=== PATIENT | male | born 1975 | race Caucasian/White ===

== ENCOUNTER 2020-02-19 10:02 | Emergency (ER) | payer SELFPAY ==
--- NOTE | 2020-02-19 10:15 | W.ED.EYEPROB ---
HPI - Eye Problem General: Chief complaint: Eye Problems Stated complaint: FB R EYE Time Seen by Provider: 02/19/20 10:09 History of Present Illness: HPI Narrative: 45-year-old male patient presents to the emergency department with right eye complaint. 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 He reports photosensitivity to the right eye, denies change of vision, pain worse with blinking, has used [id number] product such as Visine and saline to help irrigate the eye. Associated symptoms: Denies fever(s), headache(s), nausea or vomiting Review of Systems General: Reports: 10 or more systems reviewed and unremarkable except in HPI and below Const: Denies: fever(s), chills or diaphoresis Eyes: Reports: blurry vision (Right), photophobia (Right), eye discharge (Watering, right) and eye redness (Right) ENMT: Denies: throat pain, dental pain or disequilibrium Card: Denies: chest pain, palpitations or irregular heart rhythm Resp: Denies: dyspnea, productive cough, non-productive cough or wheezing GI: Denies: abdominal pain, nausea or vomiting : Denies: dysuria Musc: Denies: back pain Skin/Breast: Denies: rash or pruritus Neuro: Denies: headache(s), weakness in extremities or behavioral changes Ever/Lymph: Denies: easy bruising Physical Exam Const: COMMON NORMALS: no acute distress, patient oriented x3, healthy appearing and alert GENERAL APPEARANCE: cooperative, comfortable and well hydrated HENMT: COMMON NORMALS: normocephalic, Normal external nose present and moist oral mucous membranes HEAD & SCALP: normocephalic NOSE: Normal external nose present Eye: COMMON NORMALS: Equal, round and reactive pupils present and EOMs intact bilaterally GENERAL EYE: appearance normal, both eyes and all related structures VISUAL AMADOR: No peripheral vision loss ALIGNMENT: Yes alignment normal PERIORBITAL: periorbital findings normal EYELID: eyelids normal CONJUNCTIVA: Yes conjunctival abnormal positive right conjunctival injection SCLERA: scleral abnormal Laterality of scleral abnormality: positive right scleral injection PUPIL: Yes Equal, round and reactive pupils present, Yes pupil size - right Right pupil size (mm): 4 and Yes pupil size - left Left pupil size (mm): 4 OTHER: Fluorescein eye exam completed with tetracaine for pain, foreign body at 4:00, adjacent to pupil, Neck/C-Spine: COMMON NORMALS: full ROM and no lymphadenopathy GENERAL: Yes normal visual inspection and Yes trachea midline CERVICAL SPINE: Yes cervical ROM normal Lymph: LYMPHATIC: no lymphadenopathy noted Chest: COMMONS NORMALS: normal inspection of the chest Resp: COMMON NORMALS: normal respiratory effort and clear to auscultation bilaterally AUSCULTATION: clear to auscultation bilaterally Cardio: COMMON NORMALS: regular rhythm, S1 normal heart sound present and S2 normal heart sound present RHYTHM: regular rhythm HEART SOUNDS: S1 normal heart sound present and S2 normal heart sound present GI: COMMON NORMALS: Soft to palpation and non-tender INSPECTION: Yes normal to inspection PALPATION: Yes Soft to palpation : COMMON NORMALS: Yes no CVA tenderness BLADDER/KIDNEY EXAM: Yes no CVA tenderness Back/Pelvis: COMMON NORMALS: no CVA tenderness and thoracic and lumbar spine normal to inspection Extremity: COMMON NORMALS: normal to inspection and capillary refill normal Neuro: COMMON NORMALS: patient oriented x3 and no focal motor deficits SENSORIUM/ORIENTATION: Yes alert Psych: COMMON NORMALS: mental status grossly normal, Normal thought process present and cooperative ACTIVITY/MOTOR BEHAVIOR: Yes appropriate eye contact THOUGHT PROCESS: Normal thought process present Skin: COMMON NORMALS: no rashes or lesions noted and turgor normal GENERAL SKIN EXAM: no rashes or lesions noted and turgor normal Procedures FB Removal Eye Time Out performed: Yes Location: eye (R) Topical anesthetic used: tetracaine Foreign body: metal Evidence of corneal penetration: Yes Technique: irrigation, cotton tip swab and electric yris Procedure performed under: direct visualization with magnification Post-procedure medication: other (saline irrigation) Patient tolerated procedure: well and no complications Complications: incomplete foreign body removal and residual rust ring Course ED course: Dr. Hernandez completed foreign body removal procedure, patient tolerated well without complication Vital Signs: Vital signs: Vital Signs Temperature 98.4 F 02/19/20 10:17 Pulse Rate 70 02/19/20 11:29 Respiratory Rate 15 02/19/20 11:29 Blood Pressure 125/70 02/19/20 11:29 Pulse Oximetry 95 02/19/20 11:29 Discharge Plan Discharge Patient Disposition: Home Clinical Impression: Bacterial conjunctivitis, Foreign body Corneal abrasion Qualifiers: Encounter type: initial encounter Laterality: right Qualified Code(s): S05.01XA - Injury of conjunctiva and corneal abrasion without foreign body, right eye, initial encounter Condition: Stable Prescriptions: New polymyxin B sulf-trimethoprim 10,000 unit- 1 mg/mL drops 1 drop ophthalmic (eye) QID 7 Days Qty: 10 RF: 0 No Action ibuprofen 200 mg Tablet 200 - 400 mg PO DAILY RF: 0 Multiple Vitamins 1 tab PO DAILY RF: 0 Discharge Orders: Discharge Order (Routine); Ordered 02/19/20 Ordered By: Fernanda Hernandez Referrals: Bayron Ferro MD [Physician] - 1-3 days Discharge Diet: Usual diet Discharge Activity: Resume usual activity Patient Instructions: Corneal Abrasion (ED), Eye Foreign Body (ED) Activity Restrictions/Additional Instructions: Use eyedrops as directed, do not miss a dose. Case management will be contacting you tomorrow for follow-up appointment with Dr. Ferro, ophthalmology You may use eyewash irrigation to keep the eye hydrated/irrigated as needed for dryness Do not wear a patch Do not rub the eye May take Tylenol or ibuprofen as needed for pain as directed on back of bottle Cool compresses may help with pain If you develop inability to see out of the right eye, you must return to the emergency department immediately Discharge Date/Time: 02/19/20 11:29 Coding Level of Care Code ED Industrial Safety And Health Specialist for Merissa Moore Exam Comprehensive
[2020-02-19 10:17] VITALS: BP 138/91; PULSE 71; RESP 17; TEMP 36.9; O2SAT 96; BMI 25.0
[2020-02-19 11:29] VITALS: BP 125/70; PULSE 70; RESP 15; O2SAT 95
--- NOTE | 2020-02-21 12:05 | DCPLANNER ---
booth manager had message to schedule a follow up appointment for patient with Dr. Ferro. booth manager called the office of Dr. Ferro, spoke with Yari, gave clinic patients information. A follow up appointment is scheduled for , February 23, 2020 at 4:[address] Ferro, patient is aware of appointment.
--- NOTE | 2020-03-30 14:16 | DCPLANNER ---
Patient had a follow up appointment scheduled for 02.23.[address] Ferro - patient did attend appointment.
== END 2020-02-19 11:29 | disposition home or self-care (01) ==
PROVIDERS: Emergency Provider Nurse Practitioner Family
DX: H10.89 Other conjunctivitis (principal); S05.01XA Injury of conjunctiva and corneal abrasion without foreign body, right eye, initial encounter; T15.91XA Foreign body on external eye, part unspecified, right eye, initial encounter; X58.XXXA Exposure to other specified factors, initial encounter
CPT/HCPCS: 12345; 65205; 99282; 99283

== ENCOUNTER 2020-12-01 10:47 | Emergency (ER) | payer SELFPAY ==
[2020-12-01 10:52] VITALS: BP 136/102; PULSE 80; RESP 24; TEMP 36.8; O2SAT 97; BMI 25.0
--- NOTE | 2020-12-01 11:09 | XRR_ITS ---
PROCEDURE INFORMATION: Exam: XR Chest Exam date and time: 12/01/2020 11:16 AM Age: 45 years old Clinical indication: Shortness of breath; Sternal or substernal pain; Additional info: SOB TECHNIQUE: Imaging protocol: XR of the chest. Views: 1 view. COMPARISON: CT chest w con* [id number] 01/25/2014 6:45 PM FINDINGS: Lungs: Unremarkable. No consolidation. Pleural spaces: Unremarkable. No pleural effusion. No pneumothorax. Heart/Mediastinum: Unremarkable. No cardiomegaly. Bones/joints: Unremarkable. XR/XR chest 1V portable [id number] IMPRESSION: No acute findings.
--- NOTE | 2020-12-01 11:11 | ED_ITS ---
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 Patient states he is short of breath if he ambulates and states he just cannot seem to get a deep breath. Patient also states lack of energy. Patient denies any recent pain in the local pain mood. Patient states just fatigue and tightness in the chest is getting worse. Will do medical evaluation treat as needed Onset (ago): week(s) (1 week) Pain Consistency: constant Relieving factors: none Associated symptoms: Reports dyspnea; Deny chest pain, headache(s), nausea, rash, palpitations or vomiting Review of Systems General: Reports: 10 or more systems reviewed and unremarkable except in HPI and below Const: Reports: fatigue; Denies: fever(s), chills or body aches Eyes: Denies: change in vision or blurry vision ENMT: Denies: throat pain, hoarseness or mouth pain Card: Denies: chest pain, palpitations, irregular heart rhythm, edema, swelling of feet/ankles or lightheadedness Resp: Reports: dyspnea; Denies: productive cough, non-productive cough, wheezing or pain on inspiration GI: Denies: abdominal pain, nausea or vomiting : Denies: flank pain, dysuria, urinary frequency, urinary urgency or urinary hesitancy Musc: Reports: back pain; Denies: neck pain, extremity pain, extremity swelling, joint pain, joint swelling, joint redness, joint warmth or limited range of motion Skin/Breast: Denies: rash, pruritus, erythema or skin tenderness Neuro: Denies: headache(s), numbness in extremities or weakness in extremities Psych: Denies: anxiety or depression PFSH ED PFSH: Family History Brother Diabetes Stroke Grandmother Stroke Mother Cancer Social History Smoking and tobacco status: current some day smoker Alcohol intake: current Alcohol intake frequency: few times a month Physical Exam Const: COMMON NORMALS: no acute distress, average body habitus, patient oriented x3, no limitations, healthy appearing, alert and well nourished HENMT: COMMON NORMALS: normocephalic, atraumatic, hearing grossly normal bilaterally, external ears normal, EAC's normal, TM's normal bilaterally, Normal external nose present, Normal nasal mucous membranes and turbinates present, moist oral mucous membranes, oropharynx normal, dentition normal and gingiva normal HEAD & SCALP: normocephalic and atraumatic NOSE: Normal external nose present and Normal nasal mucous membranes and turbinates present EXTERNAL EAR: Yes external ears normal EXTERNAL AUDITORY CANAL: EAC's normal TYMPANIC MEMBRANE: TM's normal bilaterally Neck/C-Spine: COMMON NORMALS: full ROM, no lymphadenopathy, supple, no meningeal signs, no JVD, Thyroid normal and No carotid bruits THYROID: Thyroid normal Chest: COMMONS NORMALS: normal inspection of the chest, normal palpation of entire chest wall, normal inspection of the breasts and normal palpation of the breasts Breast/axilla inspection: Yes normal inspection of the breasts BREAST/AXILLA PALPATION: Yes normal palpation of the breasts Resp: COMMON NORMALS: normal respiratory effort, No retractions, No use of accessory muscles, clear to auscultation bilaterally and percussion normal AUSCULTATION: clear to auscultation bilaterally PERCUSSION: percussion normal Cardio: COMMON NORMALS: no JVD, regular rate, regular rhythm, S1 normal heart sound present, S2 normal heart sound present, No gallops present (Cardio), No clicks present (Cardio), No murmurs present (Cardio), No rub (Cardio) and Peripheral pulses 2+ throughout RATE: regular rate RHYTHM: regular rhythm HEART SOUNDS: S1 normal heart sound present and S2 normal heart sound present PERIPHERAL PULSES: Peripheral pulses 2+ throughout GI: COMMON NORMALS: Normal to inspection, nondistended, normoactive bowel sounds present, Soft to palpation, non-tender, No hepatosplenomegaly present, no masses and no bruits PALPATION: Yes Soft to palpation and Yes No hepatosplenomegaly present : COMMON NORMALS: Yes no CVA tenderness BLADDER/KIDNEY EXAM: Yes no CVA tenderness Back/Pelvis: COMMON NORMALS: no CVA tenderness, thoracic and lumbar spine normal to inspection, no thoracic nor lumbar tenderness, thoraco-lumbar ROM normal and straight leg raise negative bilaterally Extremity: COMMON NORMALS: normal to inspection, full ROM, capillary refill normal, no joint enlargement, no clubbing, cyanosis or edema, no calf tenderness and no pedal edema Neuro: COMMON NORMALS: patient oriented x3 SENSORIUM/ORIENTATION: Yes alert MENINGEAL SIGNS: Yes no meningeal signs Course Reevaluation(s): Reevaluation #1: 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 Patient states he is short of breath if he ambulates and states he just cannot seem to get a deep breath. Patient also states lack of energy. Patient denies any recent pain in the local pain mood. Patient states just fatigue and tightness in the chest is getting worse. Negative evaluation in the emergency department for any acute findings. Patient does complain of low back strain. Patient will be following up with his PCP. 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 Patient be prescribed diclofenac as needed for back pain. 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 Patient states he is short of breath if he ambulates and states he just cannot seem to get a deep breath. Patient also states lack of energy. Patient denies any recent pain in the local pain mood. Patient states just fatigue and tightness in the chest is getting worse. Negative evaluation in the emergency department for any acute findings. Patient does complain of low back strain. Patient will be following up with his PCP. 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 Patient be prescribed diclofenac as needed for back pain. Patient states understanding he will be discharged home Medical Records: Attestation: I reviewed the patient's medical records. Lab Data: Attestation: I reviewed the patient's lab results. Labs: Lab Results 12/01/20 12/01/20 12/01/20 Range/Units 11:18 11:18 11:18 WBC 3.4 L (4.0-10.0) 10^3/ uL RBC 5.35 H (4.1-5.3) 10^6/u L Hgb 16.4 (11.7-16.6) g/dL Hct 48.2 (42.0-52.0) % MCV 90.1 (80-94) fL MCH 30.7 (28.0-34.0) pg MCHC 34.0 (30.0-36.0) g/dL RDW 12.7 (12.1-15.1) % Plt Count 185 (130-400) 10^3/c mm MPV 10.6 H (7.4-10.4) fL Neut % (Auto) 56.8 % Lymph % (Auto) 31.4 % Meagher % (Auto) 10.6 % Eos % (Auto) 0.0 % Baso % (Auto) 0.9 % Neut # (Auto) 1.94 (1.8-7.7) 10^3/u L Lymph # (Auto) 1.1 (0.8-4.8) 10^3/u L Meagher # (Auto) 0.4 (0.2-0.9) 10^3/u L Eos # (Auto) 0.0 (0.0-0.8) 10^3/u L Baso # (Auto) 0.0 (0.0-0.1) 10^3/u L Nucleated RBC % (a uto) 0 % Nucleated RBCs # 0.0 /100WBC PT Cancelled INR Cancelled APTT Cancelled D-Dimer Cancelled Sodium Cancelled Potassium Cancelled Chloride Cancelled Carbon Dioxide Cancelled Anion Gap Cancelled BUN Cancelled Creatinine Cancelled GFR Calculation Cancelled Glucose Cancelled Calculated Osmolal ity Cancelled Calcium Cancelled Magnesium Cancelled Total Bilirubin Cancelled AST Cancelled ALT Cancelled Alkaline Phosphata se Cancelled Troponin T Baselin e C-Reactive Protein Cancelled NT-Pro-B Natriuret Pep Cancelled Total Protein Cancelled Albumin Cancelled Globulin Cancelled Urine Opiates Scre en (Negative) ng/mL Ur Barbiturates Sc reen (Negative) ng/mL Ur Phencyclidine S crn (Negative) ng/mL Ur Amphetamines Sc reen (Negative) ng/mL U Benzodiazepines Scrn (Negative) ng/mL Urine Cocaine Scre en (Negative) ng/mL U Marijuana (THC) Screen (Negative) ng/mL 12/01/20 12/01/20 12/01/20 Range/Units 11:18 12:15 12:15 WBC (4.0-10.0) 10^3/ uL RBC (4.1-5.3) 10^6/u L Hgb (11.7-16.6) g/dL Hct (42.0-52.0) % MCV (80-94) fL MCH (28.0-34.0) pg MCHC (30.0-36.0) g/dL RDW (12.1-15.1) % Plt Count (130-400) 10^3/c mm MPV (7.4-10.4) fL Neut % (Auto) % Lymph % (Auto) % Meagher % (Auto) % Eos % (Auto) % Baso % (Auto) % Neut # (Auto) (1.8-7.7) 10^3/u L Lymph # (Auto) (0.8-4.8) 10^3/u L Meagher # (Auto) (0.2-0.9) 10^3/u L Eos # (Auto) (0.0-0.8) 10^3/u L Baso # (Auto) (0.0-0.1) 10^3/u L Nucleated RBC % (a uto) % Nucleated RBCs # /100WBC PT 13.50 INR 1.00 APTT 27.7 D-Dimer 0.35 Sodium 132 L Potassium 4.3 Chloride 95 L Carbon Dioxide 25 Anion Gap 16.3 BUN 11 Creatinine 0.9 GFR Calculation 92.1 Glucose 88 Calculated Osmolal ity 273 L Calcium 9.2 Magnesium 2.4 H Total Bilirubin 0.6 AST 25 ALT 19 Alkaline Phosphata se 90 Troponin T Baselin e Cancelled C-Reactive Protein 7.9 H NT-Pro-B Natriuret Pep 45 Total Protein 7.7 Albumin 4.5 Globulin 3.2 Urine Opiates Scre en (Negative) ng/mL Ur Barbiturates Sc reen (Negative) ng/mL Ur Phencyclidine S crn (Negative) ng/mL Ur Amphetamines Sc reen (Negative) ng/mL U Benzodiazepines Scrn (Negative) ng/mL Urine Cocaine Scre en (Negative) ng/mL U Marijuana (THC) Screen (Negative) ng/mL 12/01/20 12/01/20 Range/Units 12:15 12:45 WBC (4.0-10.0) 10^3/ uL RBC (4.1-5.3) 10^6/u L Hgb (11.7-16.6) g/dL Hct (42.0-52.0) % MCV (80-94) fL MCH (28.0-34.0) pg MCHC (30.0-36.0) g/dL RDW (12.1-15.1) % Plt Count (130-400) 10^3/c mm MPV (7.4-10.4) fL Neut % (Auto) % Lymph % (Auto) % Meagher % (Auto) % Eos % (Auto) % Baso % (Auto) % Neut # (Auto) (1.8-7.7) 10^3/u L Lymph # (Auto) (0.8-4.8) 10^3/u L Meagher # (Auto) (0.2-0.9) 10^3/u L Eos # (Auto) (0.0-0.8) 10^3/u L Baso # (Auto) (0.0-0.1) 10^3/u L Nucleated RBC % (a uto) % Nucleated RBCs # /100WBC PT INR APTT D-Dimer Sodium Potassium Chloride Carbon Dioxide Anion Gap BUN Creatinine GFR Calculation Glucose Calculated Osmolal ity Calcium Magnesium Total Bilirubin AST ALT Alkaline Phosphata se Troponin T Baselin e 6 C-Reactive Protein NT-Pro-B Natriuret Pep Total Protein Albumin Globulin Urine Opiates Scre en Negative (Negative) ng/mL Ur Barbiturates Sc reen Negative (Negative) ng/mL Ur Phencyclidine S crn Negative (Negative) ng/mL Ur Amphetamines Sc reen Negative (Negative) ng/mL U Benzodiazepines Scrn Positive H (Negative) ng/mL Urine Cocaine Scre en Negative (Negative) ng/mL U Marijuana (THC) Screen Negative (Negative) ng/mL Imaging Data^: CXR: Attestation: I personally reviewed and interpreted this imaging study as follows: Radiologist's impression: IMPRESSION: No acute findings. EKG Data^: EKG 1: Attestation: I personally reviewed and interpreted this EKG as follows: EKG interpretation date: 12/01/20 EKG interpretation time: 11:00 Interpretation: Normal sinus rhythm heart rate 71 Computer generated interpretation: Chest X-Ray 12/01/20 11:09 IMPRESSION: No acute findings. Discharge Plan Discharge Patient Disposition: Home Clinical Impression: Dyspnea, Low back strain Condition: Stable Prescriptions: New diclofenac sodium 75 mg tablet,delayed release (DR/EC) 75 mg PO BID PRN (Reason: pain) Qty: 20 RF: 0 No Action ibuprofen 200 mg Tablet 200 - 400 mg PO DAILY RF: 0 Discharge Orders: Discharge ED (Routine); Ordered 12/01/20 Ordered By: Jerry Allen Referrals: Regla Walsh NP [Primary Care Provider] - Discharge Diet: Advance as tolerated Discharge Activity: Increase activity as tolerated Patient Instructions: Opioid Safety Activity Restrictions/Additional Instructions: Encourage p.o. fluids. Stretching exercises as needed. Take medication as needed for low back pain. Follow-up with PCP in 2 to 3 days as needed. Coding Level of Care Code ED Digital Photographer for Merissa Fwd Exam Comprehensive
--- NOTE | 2020-12-01 11:11 | ECG_ITS ---
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
[2020-12-01 11:54] LABS: Basophils % 0.9 %; Hematocrit 48.2 % (42.0-52.0); Hemoglobin 16.4 g/dL (11.7-16.6); Lymphocytes # 1.1 10^3/uL (0.8-4.8); Lymphocytes % 31.4 %; Mean Corpuscular Hemoglobin 30.7 pg (28.0-34.0); Mean Corpuscular Volume 90.1 fL (80-94); Mean Platelet Volume 10.6 fL (7.4-10.4); Monocytes # 0.4 10^3/uL (0.2-0.9); Monocytes % 10.6 %; Neutrophils # 1.94 10^3/uL (1.8-7.7); Neutrophils % 56.8 %; Nucleated Red Blood Cells % 0 %; Platelet Count 185 10^3/cmm (130-400); Red Blood Count 5.35 10^6/uL (4.1-5.3); Red Cell Distribution Width 12.7 % (12.1-15.1); White Blood Count 3.4 10^3/uL (4.0-10.0)
[2020-12-01 12:50] LABS: Partial Thromboplastin Time 27.7 SECONDS (23.9-36.7)
[2020-12-01 12:52] LABS: D Dimer 0.35 ug/mIFEU (0-0.59)
[2020-12-01 12:58] LABS: Troponin(5th) Baseline 6 ng/L (0-15)
[2020-12-01 13:08] LABS: Alanine Aminotransferase 19 U/L (0-41); Albumin Level 4.5 g/dL (3.5-5.2); Alkaline Phosphatase 90 IU/L (40-130); Aspartate Amino Transferase 25 U/L (0-40); Blood Urea Nitrogen 11 mg/dL (6-20); C Reactive Protein 7.9 mg/L (0.0-4.9); Calcium 9.2 mg/dL (8.5-10.5); Carbon Dioxide 25 mmol/L (22-29); Chloride 95 mmol/L (98-107); Globulin 3.2 g/dL (1.3-4.6); Glomerular Filtration Rate 92.1 mL/min (90-130); Glucose 88 mg/dL (65-115); Magnesium 2.4 mg/dL (1.7-2.3); NT Pro B Type Natriuretic Pept 45 pg/mL (0-125); Osmolality Calculated 273 mOsm/kg (285-295); Sodium 132 mmol/L (136-145); Total Bilirubin 0.6 mg/dL (0.15-1.2); Total Protein 7.7 g/dL (6.6-8.7)
--- NOTE | 2020-12-01 13:11 | ECG_ITS ---
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
[2020-12-01 13:16] LABS: Amphetamines Screen Urine Negative (Negative); Barbiturates Screen Urine Negative (Negative); Benzodiazepines Screen Urine Positive (Negative); Cocaine Screen Urine Negative (Negative); Opiate Screen Urine Negative (Negative); PCP Screen Urine Negative (Negative); THC Screen Urine Negative (Negative)
[2020-12-01 13:33] LABS: Anion Gap 16.3 (5-19); Potassium 4.3 mmol/L (3.5-5.1)
[2020-12-01 14:34] VITALS: BP 110/62; PULSE 85; RESP 18; O2SAT 96
== END 2020-12-01 14:38 | disposition home or self-care (01) ==
PROVIDERS: Emergency Provider Emergency Medicine; PCP Nurse Practitioner Family
DX: S39.012A Strain of muscle, fascia and tendon of lower back, initial encounter (principal); R06.00 Dyspnea, unspecified; F17.210 Nicotine dependence, cigarettes, uncomplicated; X58.XXXA Exposure to other specified factors, initial encounter
CPT/HCPCS: 36415; 71045; 80053; 80306; 83735; 83880; 84484; 85025; 85378; 85610; 85730; 86140; 93005; 99283

== ENCOUNTER → 2023-01-16 16:17 | Outpatient (BNVA) | payer MEDICAID, SELFPAY | PROVIDERS: PCP Nurse Practitioner Family; Visit Provider Nurse Practitioner Family | DX: Z13.6 Encounter for screening for cardiovascular disorders (principal); Z13.29 Encounter for screening for other suspected endocrine disorder | CPT/HCPCS: 80053; 80061; 84443 ==

== ENCOUNTER → 2023-01-22 09:57 | Outpatient (BNVA) | payer MEDICAID, SELFPAY | PROVIDERS: PCP Nurse Practitioner Family; Visit Provider Nurse Practitioner Family | DX: Z13.6 Encounter for screening for cardiovascular disorders (principal); Z13.29 Encounter for screening for other suspected endocrine disorder | CPT/HCPCS: 80053; 80061; 84443 ==

== ENCOUNTER 2024-10-02 21:18 | Emergency (ER) | payer MEDICAID, SELFPAY ==
[2024-10-02 21:21] VITALS: BP 136/87; PULSE 73; RESP 15; TEMP 36.8; O2SAT 97; BMI 25.0
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
[2024-10-02] MEDS: diphenhydrAMINE 50 mg/mL SDV 1mL 25 MG IVP (22:01)
[2024-10-02] MEDS: methylPREDNISolone sod succ 125 mg/2 mL INJ 60 MG IVP (22:02)
[2024-10-02] MEDS: famotidine 20 mg/2 mL INJ IVP (22:02)
[2024-10-02] MEDS: sodium chloride 0.9% 1,000 ML 999 ML IV (22:02)
[2024-10-02 22:16] VITALS: PULSE 68; RESP 16; O2SAT 99
[2024-10-02] MEDS: cefTRIAXone 2,000 mg SDV 2000 MG IVP (23:25)
[2024-10-02 23:42] VITALS: BP 124/79; PULSE 66; RESP 16; O2SAT 97
[2024-10-02 23:49] VITALS: BP 107/70; PULSE 66; RESP 14; O2SAT 96
== END 2024-10-02 23:49 | disposition home or self-care (01) ==
PROVIDERS: Emergency Provider Nurse Practitioner; PCP Nurse Practitioner Family
DX: R21 Rash and other nonspecific skin eruption (principal)
CPT/HCPCS: 96361; 96374; 96375; 99284; J0696; J1200; J2919; J3490; J7030

== ENCOUNTER 2024-10-04 16:48 | Emergency (ER) | payer SELFPAY ==
[2024-10-04 17:01] VITALS: BP 138/89; PULSE 74; TEMP 36.6; O2SAT 99; BMI 25.0
--- NOTE | 2024-10-04 17:43 | XRR_ITS ---
PROCEDURE INFORMATION: Exam: XR Chest Exam date and time: 10/04/2024 5:45 PM Age: 49 years old Clinical indication: Shortness of breath; Additional info: SOB, rash TECHNIQUE: Imaging protocol: Radiologic exam of the chest. Views: 1 view. COMPARISON: CR XR chest 1V portable [id number] 12/01/2020 11:13 AM FINDINGS: Lungs: Unremarkable. No consolidation. Pleural spaces: Unremarkable. No pleural effusion. No pneumothorax. Heart/Mediastinum: Unremarkable. No cardiomegaly. Bones/joints: Unremarkable. XR/XR chest 1V portable [id number] IMPRESSION: No acute findings.
--- NOTE | 2024-10-04 17:45 | W.ED.SKABFB ---
HPI - Skin/Abscess/Foreign Bdy General: Chief complaint: Skin/Abscess/Foreign Body Stated complaint: swelling and itching all over body Time Seen by Provider: 10/04/24 17:33 Source: patient Mode of arrival: ambulatory Limitations: no limitations History of Present Illness: Patient is a 49-year-old male who presents emerged department for rash on Thursday. He was seen in the ED for the rash, and he states that he has been wrecking his brain for the past couple days to try to think about what might of caused it but ultimately has no idea. No known food or drink allergy, no new detergent, clothing, or bedsheets, and no contact with plants. States that he has started to have shortness of breath when the rash does flareup, otherwise no other symptoms. Rash noted to be to face bilateral upper extremities as well as to the genitals, which she states has specifically been worsening. States his scrotum has been swollen and he has been having inguinal lymphadenopathy, and that the irritation has kept him up from sleeping all night. On Thursday was diagnosed with a rash, presumed to be erysipelas, was started on cephalexin for this after receiving dose of ceftriaxone in the ED and also was discharged on prednisone. Also in the ED on Thursday received methylprednisone, Benadryl, and famotidine. He has continued to take Benadryl at home with no relief. At this time his vitals are unremarkable, no fever and no other symptoms. He denies any urinary symptoms specifically, and states that his last sexual partner was months ago and he has been having intercourse with the same partner. No penile discharge or testicular pain. MD complaint: rash Onset (ago): day(s) Tetanus up to date: yes Location: face, LUE, RUE and genitals Severity: severe Pain Consistency: intermittent Relieving factors: none Exacerbating factors: none Context: none Associated symptoms: Reports short of breath; Deny chills, fever(s), nausea or vomiting Treatments prior to arrival: Benadryl, corticosteroid and antibiotic Related Data Previous Rx's ?Medication ?Instructions ?Recorded ciclopirox 0.77 % topical gel 1 applic topical BID 4 weeks #45 01/15/23 grams tadalafil 20 mg tablet 20 mg PO DAILY PRN sexual activity 01/15/23 #30 tabs cephalexin 500 mg capsule 500 mg PO Q6H 7 days #28 caps 10/02/24 prednisone 5 mg tablets in a dose See Rx Instructions PO .COMPLEX 10/04/24 pack #21 ea triamcinolone acetonide 0.1 % 1 applic topical DAILY #15 grams 10/04/24 topical ointment Allergies Allergy/AdvReac Type Severity Reaction Status Date / Time morphine Allergy ADR-Itching Verified 10/04/24 17:07 Review of Systems General: Reports: 10 or more systems reviewed and unremarkable except in HPI and below Const: Denies: fever(s) or chills Card: Denies: chest pain Resp: Reports: dyspnea GI: Denies: abdominal pain, nausea, vomiting or diarrhea : Reports: scrotal swelling; Denies: difficulty urinating, dysuria, hematuria, penile discharge or testicular pain Musc: Denies: extremity pain or joint pain Skin/Breast: Reports: rash and pruritus; Denies: skin pain, skin tenderness or new lesions Neuro: Denies: headache(s) PFSH ED PFSH: Family History Brother Diabetes Stroke Grandmother Stroke Mother Cancer Social History Smoking and tobacco/nicotine status: former use of tobacco/nicotine Alcohol intake: current Alcohol intake frequency: holidays/special occasions only Substance/Drug Use: never Physical Exam Const: COMMON NORMALS: no acute distress, average body habitus, patient oriented x3, no limitations, healthy appearing, alert and well nourished HENMT: COMMON NORMALS: normocephalic and atraumatic HEAD & SCALP: normocephalic and atraumatic OTHER: Facial erythema and periorbital edema Neck/C-Spine: COMMON NORMALS: full ROM, no lymphadenopathy, supple and no meningeal signs Resp: COMMON NORMALS: normal respiratory effort, No use of accessory muscles and clear to auscultation bilaterally AUSCULTATION: clear to auscultation bilaterally Cardio: COMMON NORMALS: regular rate and regular rhythm RATE: regular rate RHYTHM: regular rhythm GI: COMMON NORMALS: Soft to palpation and non-tender PALPATION: Yes Soft to palpation : OTHER: Scrotal swelling and penile swelling noted on exam, erythematous and nontender to palpation. Mild bilateral inguinal lymphadenopathy palpated Extremity: COMMON NORMALS: full ROM and capillary refill normal NARRATIVE EXTREMITY EXAM: Erythematous maculopapular rash to bilateral forearms, presence of lichenification from itching Neuro: COMMON NORMALS: patient oriented x3, moves all extremities, no focal motor deficits and no sensory deficits noted SENSORIUM/ORIENTATION: Yes alert MENINGEAL SIGNS: Yes no meningeal signs Skin: COMMON NORMALS: no wounds and turgor normal NARRATIVE SKIN EXAM: See HEENT, , and extremity exam GENERAL SKIN EXAM: turgor normal Course Vital Signs: Vital signs: Vital Signs Temperature 97.8 F 10/04/24 17:01 Pulse Rate 74 10/04/24 18:31 Blood Pressure 126/85 10/04/24 18:31 Pulse Oximetry 95 10/04/24 18:31 Oxygen Delivery Me thod Room Air 10/04/24 18:31 MDM - Skin/Abscess/Foreign Bdy Medicial Decision Making This patient presented for the second time in 2 days for continued rash to face extremities and genitalia. On exam maculopapular rash noted to his extremities, there was periorbital edema and redness to his face, and genitalia did show some scrotal edema with surrounding erythema. Also mild edema to his penis and some inguinal lymphadenopathy. Vitals have been unremarkable, he has been taking antibiotics and steroids at home that he was prescribed on Thursday. Mild shortness of breath noted with his worsening of rash, states that overall the rash has been intermittent. His x-ray was unremarkable however. Lab work was normal and urinalysis did not show any signs of infection. I spoke with Dr. Mendoza, improvement director, in regards to patient's case and current findings. Pictures were reviewed of the rash. She states she will see the patient in the office and to start on prednisone taper as well as topical triamcinolone for the extremities. Discussed this plan with patient, who has remained stable throughout ED course. Told him to await call to schedule this appointment and to return if he starts having any further respiratory distress, high fever, or any other major concerns. He agrees with this plan, methylprednisone, Benadryl, and famotidine given through IV prior to discharge. Discharged in stable condition. Lab Data 10/04/24 17:52 10/04/24 17:52 Radiology Impressions Chest X-Ray 10/04/24 17:43 IMPRESSION: No acute findings. Laboratory Results WBC 13.78 10^3/uL (3.29-11.43) H 10/04/24 17:52 RBC 5.41 10^6/uL (3.85-5.65) 10/04/24 17:52 Hgb 16.30 g/dL (11.27-16.99) 10/04/24 17:52 Hct 48.6 % (37-53) 10/04/24 17:52 MCV 89.8 fl (82-101) 10/04/24 17:52 MCH 30.1 pg (27-33) 10/04/24 17:52 MCHC 33.5 g/dL (30-55) 10/04/24 17:52 RDW 13.0 % (12.1-15.1) 10/04/24 17:52 Plt Count 291 10^3/cmm (157-399) 10/04/24 17:52 MPV 10.0 fL (7.4-10.4) 10/04/24 17:52 Neut % (Auto) 90.4 % 10/04/24 17:52 Lymph % (Auto) 6.4 % 10/04/24 17:52 [place] % (Auto) 1.2 % 10/04/24 17:52 Eos % (Auto) 1.5 % 10/04/24 17:52 Baso % (Auto) 0.1 % 10/04/24 17:52 Neut # (Auto) 12.46 10^3/uL (1.8-7.7) H 10/04/24 17:52 Lymph # (Auto) 0.9 10^3/uL (0.8-4.8) 10/04/24 17:52 [place] # (Auto) 0.2 10^3/uL (0.2-0.9) 10/04/24 17:52 Eos # (Auto) 0.2 10^3/uL (0.0-0.8) 10/04/24 17:52 Baso # (Auto) 0.0 10^3/uL (0.0-0.1) 10/04/24 17:52 Nucleated RBC % (auto) 0 % 10/04/24 17:52 Nucleated RBCs # 0.0 /100WBC 10/04/24 17:52 Sodium 136 mmol/L (136-145) 10/04/24 17:52 Potassium 4.4 mmol/L (3.5-5.1) 10/04/24 17:52 Chloride 103 mmol/L (98-107) 10/04/24 17:52 Carbon Dioxide 22 mmol/L (22-29) 10/04/24 17:52 Anion Gap 15.4 (5-19) 10/04/24 17:52 BUN 19 mg/dL (6-20) 10/04/24 17:52 Creatinine 0.9 mg/dL (0.7-1.2) 10/04/24 17:52 GFR Calculation 90.4 mL/min (90-130) 10/04/24 17:52 Glucose 131 mg/dL (65-115) H 10/04/24 17:52 Calculated Osmolality 286 mOsm/kg (285-295) 10/04/24 17:52 Calcium 9.6 mg/dL (8.5-10.5) 10/04/24 17:52 Total Bilirubin 0.4 mg/dL (0.15-1.2) 10/04/24 17:52 AST 24 U/L (0-40) 10/04/24 17:52 ALT 32 U/L (0-41) 10/04/24 17:52 Alkaline Phosphatase 80 U/L (40-130) 10/04/24 17:52 C-Reactive Protein 3.0 mg/L (0.0-4.9) 10/04/24 17:52 Total Protein 7.7 g/dL (6.6-8.7) 10/04/24 17:52 Albumin 4.5 g/dL (3.5-5.2) 10/04/24 17:52 Globulin 3.2 g/dL (1.3-4.6) 10/04/24 17:52 Urine Color Yellow (Yellow) 10/04/24 18:55 Urine Appearance Clear (CLEAR) 10/04/24 18:55 Urine pH 6 (5-7) 10/04/24 18:55 Ur Specific [place] 1.015 (1.005-1.030) 10/04/24 18:55 Urine Protein Neg (Negative) 10/04/24 18:55 Urine Glucose (UA) Norm (Normal) 10/04/24 18:55 Urine Ketones Negative (Negative) 10/04/24 18:55 Urine Blood Neg (Negative) 10/04/24 18:55 Urine Nitrate Negative (Negative) 10/04/24 18:55 Urine Bilirubin Neg (Negative) 10/04/24 18:55 Urine Urobilinogen 1 mg/dL (Negative) H 10/04/24 18:55 Ur Leukocyte Esterase Negative (Negative) 10/04/24 18:55 Amorphous Sediment Not Reportable 10/04/24 18:55 All radiology interpretation(s) finalized by discharge Discharge Plan Discharge Patient Disposition: Home Clinical Impression: Contact dermatitis Qualifiers: Contact dermatitis type: unspecified Contact dermatitis trigger: unspecified trigger Qualified Code(s): L25.9 - Unspecified contact dermatitis, unspecified cause Condition: Stable Prescriptions: New prednisone 5 mg tablets,dose pack See Rx Instructions .ROUTE .COMPLEX Qty: 21 0RF Rx Instructions: prednisone 5 mg: take 8 tablets (40 mg) on Day 1; 7 tablets (35 mg) on Day 2; then decrease by 1 tablet every day until finished triamcinolone acetonide 0.1 % ointment 1 applic topical DAILY Qty: 15 0RF Discontinued prednisone 50 mg tablet 50 mg PO DAILY 5 Days Qty: 5 0RF No Action tadalafil 20 mg tablet 20 mg PO DAILY PRN (Reason: sexual activity) Qty: 30 0RF Rx Instructions: take approx 30min before sexual activity; do not use more than 1 dose per 24hrs ciclopirox 0.77 % gel 1 applic topical BID 28 Days Qty: 45 1RF cephalexin 500 mg capsule 500 mg PO Q6H 7 Days Qty: 28 0RF Discharge Orders: Discharge ED (Routine); Ordered 10/04/24 Ordered By: Jonathan Pandya Referrals: Regla Walsh NP [Primary Care Provider] - Patient Instructions: Contact Dermatitis (ED) Activity Restrictions/Additional Instructions: Apply the triamcinolone to your extremities as we discussed. Take prednisone taper. Follow-up with dermatology as we discussed. Return with any respiratory distress, worsening genitalia swelling, or any other major concerns that you have. Print Language: Kazakh Coding Level of Care Code ED Hose Inspector And Patcher for Merissa Moore
[2024-10-04 17:57] VITALS: BP 122/90; PULSE 76; O2SAT 95
[2024-10-04 17:58] LABS: Basophils % 0.1 %; Eosinophils # 0.2 10^3/uL (0.0-0.8); Eosinophils % 1.5 %; Hematocrit 48.6 % (37-53); Lymphocytes # 0.9 10^3/uL (0.8-4.8); Lymphocytes % 6.4 %; Mean Corpuscular HGB Conc 33.5 g/dL (30-55); Mean Corpuscular Hemoglobin 30.1 pg (27-33); Mean Corpuscular Volume 89.8 fl (82-101); Monocytes # 0.2 10^3/uL (0.2-0.9); Monocytes % 1.2 %; Neutrophils # 12.46 10^3/uL (1.8-7.7); Neutrophils % 90.4 %; Nucleated Red Blood Cells % 0 %; Platelet Count 291 10^3/cmm (157-399); Red Blood Count 5.41 10^6/uL (3.85-5.65); White Blood Count 13.78 10^3/uL (3.29-11.43)
[2024-10-04 18:18] LABS: Alanine Aminotransferase 32 U/L (0-41); Albumin Level 4.5 g/dL (3.5-5.2); Alkaline Phosphatase 80 U/L (40-130); Anion Gap 15.4 (5-19); Aspartate Amino Transferase 24 U/L (0-40); Blood Urea Nitrogen 19 mg/dL (6-20); Calcium 9.6 mg/dL (8.5-10.5); Carbon Dioxide 22 mmol/L (22-29); Chloride 103 mmol/L (98-107); Creatinine Clr Calc Pharmacy 98.5829; Globulin 3.2 g/dL (1.3-4.6); Glomerular Filtration Rate 90.4 mL/min (90-130); Glucose 131 mg/dL (65-115); Osmolality Calculated 286 mOsm/kg (285-295); Potassium 4.4 mmol/L (3.5-5.1); Sodium 136 mmol/L (136-145); Total Bilirubin 0.4 mg/dL (0.15-1.2); Total Protein 7.7 g/dL (6.6-8.7)
[2024-10-04 18:31] VITALS: BP 126/85; PULSE 74; O2SAT 95
[2024-10-04 18:58] LABS: Add Urine Microscopic? NO
[2024-10-04 19:34] LABS: Bilirubin Urine Neg (Negative); Blood Urine Neg (Negative); Glucose Urine UA Norm (Normal); Ketones Urine Negative (Negative); Leukocyte Esterase Urine Negative (Negative); Nitrate Urine Negative (Negative); Protein Urine Neg (Negative); Specific Gravity, Urine 1.015 (1.005-1.030); Urine Appearance Clear (CLEAR); Urine Color Yellow (Yellow); Urobilinogen Urine 1 mg/dL (Negative); pH Urine 6 (5-7)
[2024-10-04 19:35] LABS: Charge for UA Resulting for Rev
[2024-10-04] MEDS: methylPREDNISolone sod succ 125 mg/2 mL INJ IVP (19:49)
[2024-10-04] MEDS: diphenhydrAMINE 50 mg/mL SDV 1mL IVP (19:52)
[2024-10-04] MEDS: famotidine 20 mg/2 mL INJ 40 MG IVP (19:53)
[2024-10-04 20:05] VITALS: BP 125/90; PULSE 70; RESP 16; O2SAT 95
--- NOTE | 2024-10-05 11:40 | DCPLANNER ---
messaged derm for er f/u
== END 2024-10-04 20:10 | disposition home or self-care (01) ==
PROVIDERS: Emergency Provider Physician Assistant; PCP Nurse Practitioner Family
DX: L25.9 Unspecified contact dermatitis, unspecified cause (principal); Z87.891 Personal history of nicotine dependence
CPT/HCPCS: 71045; 80053; 81003; 85025; 86140; 96374; 96375; 99284; J1200; J2919; J3490